=== PATIENT | female | born 1945 | race Caucasian/White ===

== ENCOUNTER 2023-10-05 09:47 | Day surgery (SDC) | payer OTHER ==
[~2023-10-05] VITALS: Ht 160 cm; Wt 81.6 kg
[~2023-10-05 09:47] MED LIST: DIABETES; HYPERLIPIDEMIA; MUSCLE RELAXANT; VENL75TA17 PO
[2023-10-05] MEDS ORDERED: MIDAZOLAM 2 MG/2 ML VIAL ONE (11:21)
[2023-10-05] MEDS ORDERED: fentaNYL citrate 0.05 MG/ML VIAL ONE (11:21)
[2023-10-05] MEDS: MIDAZOLAM 2 MG/2 ML VIAL IVP ONE (11:54)
[2023-10-05] MEDS: fentaNYL citrate 0.05 MG/ML VIAL IVP ONE (11:55)
[2023-10-05] MEDS: LIDOCAINE 2% 100 MG/5 ML UJET TP ONE (12:09)
== END 2023-10-05 13:17 | disposition home or self-care (01) ==
LOC: MDS 09:47 → MMU 09:49 → MDS 13:17
PROVIDERS: ATTEND Internal Medicine Gastroenterology
DX: R19.7 Diarrhea, unspecified (principal); R11.2 Nausea with vomiting, unspecified; K20.90 Esophagitis, unspecified without bleeding; K22.70 Barrett's esophagus without dysplasia; E11.9 Type 2 diabetes mellitus without complications; I10 Essential (primary) hypertension; F32.A Depression, unspecified; M19.90 Unspecified osteoarthritis, unspecified site; J45.909 Unspecified asthma, uncomplicated; Z88.1 Allergy status to other antibiotic agents; Z79.899 Other long term (current) drug therapy; Z98.890 Other specified postprocedural states
CPT/HCPCS: 36415; 43239; 45378; 82948; 86677; J2250; J3010